=== PATIENT | male | born 1990 | race Caucasian/White ===

== ENCOUNTER 2021-03-15 20:19 | Emergency (ER) | payer OTHER ==
[~2021-03-15] VITALS: Ht 180.3 cm; Wt 68.0 kg
== END 2021-03-15 21:20 | disposition home or self-care (01) ==
LOC: ER 20:19
DX: L25.5 Unspecified contact dermatitis due to plants, except food (principal)
CPT/HCPCS: 96372; 99283-25; A9270; J3301